=== PATIENT | female | born 1960 | race Caucasian/White ===

== ENCOUNTER 2022-07-24 17:06 | Emergency (ER) | payer OTHER ==
[2022-07-24] MEDS ORDERED: IBUPROFEN 400 MG TAB ONE (17:46)
--- NOTE | 2022-07-24 18:06 | RAD REPORT ---
EXAM DESCRIPTION: RAD - Ankle Left 3 View - 07/24/2022 5:57 pm CLINICAL HISTORY: Pain, twisting injury COMPARISON: None. FINDINGS: No fracture, dislocation or periosteal reaction. No joint effusion seen. No joint space na rrowing. Lateral and anterior soft tissue swelling present. IMPRESSION: Soft tissue swelling with no left ankle fracture.
--- NOTE | 2022-07-24 18:47 | ER ---
Nurse's Notes [facility] Name: Ginette Ortega Age: 61 yrs Sex: Female : 1960 Arrival Date: 07/24/2022 Time: 17:07 Bed 12 Private MD: Diagnosis: Sprain of ankle-left Presentation: 07/24 17:17 Chief complaint: Patient states: Twisted my left ankle this evening. C/O pain to left ld1 ankle. Coronavirus screen: At this time, the client does not indicate any symptoms associated with coronavirus-19. Ebola Screen: No symptoms or risks identified at this time. Initial Sepsis Screen: Does the patient meet any 2 criteria? No. Patient's initial sepsis screen is negative. Does the patient have a suspected source of infection? No. Patient's initial sepsis screen is negative. Risk Assessment: Do you want to hurt yourself or someone else? Patient reports no desire to harm self or others. Onset of symptoms was July 24, 2022. 17:17 Method Of Arrival: Wheelchair ld1 17:17 Acuity: RAQUEL 4 ld1 Triage Assessment: 17:18 General: Appears in no apparent distress. comfortable, Behavior is calm, cooperative, ld1 appropriate for age. Pain: Complains of pain in left foot Pain does not radiate. Pain currently is 8 out of 10 on a pain scale. Quality of pain is described as throbbing, Pain began suddenly. EENT: No signs and/or symptoms were reported regarding the EENT system. Neuro: Level of Consciousness is awake, alert, obeys commands, Oriented to person, place, time, situation, Appropriate for age. Cardiovascular: Capillary refill < 3 seconds Patient's skin is warm and dry. Respiratory: Airway is patent Respiratory effort is even, unlabored. GI: Abdomen is flat, non-distended. : No signs and/or symptoms were reported regarding the genitourinary system. Derm: No signs and/or symptoms reported regarding the dermatologic system. Musculoskeletal: No signs and/or symptoms reported regarding the musculoskeletal system. Historical: - Allergies: 17:18 PENICILLINS; ld1 - Home Meds: 17:18 None [Active]; ld1 - PSHx: 17:18 None; ld1 - Immunization history:: Adult Immunizations up to date, Client reports receiving the 2nd dose of the Covid vaccine. - Social history:: Smoking status: Patient denies any tobacco usage or history of. Patient/guardian denies using alcohol. Screenin:22 Abuse screen: Denies threats or abuse. Denies injuries from another. Nutritional mb8 screening: No deficits noted. Tuberculosis screening: No symptoms or risk factors identified. Fall Risk None identified. Assessment: 17:21 Musculoskeletal: Circulation, motion, and sensation intact. Capillary refill < 3 mb8 seconds, Swelling present in left ankle Reports pain in left ankle Patient tripped on concrete step and thinks she 'twisted' her ankle. Has been weight bearing on it since but reports pain when walking. 17:47 Reassessment: Patient and/or family updated on plan of care and expected duration. Pain mb8 level reassessed. Patient is alert, oriented x 3, equal unlabored respirations, skin warm/dry/pink. Vital Signs: 17:17 BP 116 / 77; Pulse 75; Resp 18; Temp 97.6(TE); Pulse Ox 99% on R/A; Weight 70.31 kg; ld1 Height 5 ft. 3 in. (160.02 cm); Pain 8/10; 17:17 Body Mass Index 27.46 (70.31 kg, 160.02 cm) ld1 ED Course: 17:07 Patient arrived in ED. am2 17:09 Delroy Maloney PA is PHCP. cp 17:09 Flavio Wall MD is Attending Physician. cp 17:18 Triage completed. ld1 17:18 Arm band placed on right wrist. ld1 17:21 Elian Gabriel, RN is Primary Nurse. mb8 17:22 Patient has correct armband on for positive identification. Bed in low position. Call mb8 light in reach. Side rails up X2. 17:23 Ice pack to injury. mb8 17:59 XRAY Ankle LEFT 3 view In Process Unspecified. EDMS 18:21 Crutch training done. ankle air cast. mb8 18:44 Wong Soriano MD is Referral Physician. cp 18:51 No provider procedures requiring assistance completed. Patient did not have IV access mb8 during this emergency room visit. Administered Medications: 17:47 Drug: Ibuprofen 800 mg Route: PO; mb8 Medication: 17:22 VIS not applicable for this client. mb8 Outcome: 18:46 Discharge ordered by . cp 18:51 Discharged to home with crutches, with family. mb8 18:51 Condition: stable 18:51 Discharge instructions given to patient, Instructed on discharge instructions, follow up and referral plans. medication usage, crutch walking, Demonstrated understanding of instructions, follow-up care, medications, crutch walking, splint care, Prescriptions given X 1. 18:51 Patient left the ED. mb8 Signatures: Dispatcher [employer] EDMS Delroy Maloney PA PA Sherie Saravia am2 Isa Jansen, RN RN ld1 Elian Gabriel RN RN mb8 Corrections: (The following items were deleted from the chart) 17:18 17:18 Allergies: No Known Allergies; ld1 ld1
--- NOTE | 2022-07-24 18:47 | EDPHYS ---
Physician Documentation [facility] Name: Ginette Ortega Age: 61 yrs Sex: Female : 1960 Arrival Date: 07/24/2022 Time: 17:07 Bed 12 Private MD: ED Physician Flavio Wall HPI: 07/24 17:50 This 61 yrs old Female presents to ER via Wheelchair with complaints of Ankle Injury. cp 17:50 The patient presents with decreased range of motion, an injury, pain, that is acute, cp swelling, tenderness. The complaints affect the left ankle. Onset: The symptoms/episode began/occurred just prior to arrival. Context: The problem was sustained outdoors, while walking lost her balance, ankle turned outward and caused her to fall. Immediate left ankle pain, The mechanism of injury involved eversion of the affected ankle. The patient is unable to bear weight. 17:50 Associated signs and symptoms: The patient has no apparent associated signs or symptoms.cp Historical: - Allergies: 17:18 PENICILLINS; ld1 - Home Meds: 17:18 None [Active]; ld1 - PSHx: 17:18 None; ld1 - Immunization history:: Adult Immunizations up to date, Client reports receiving the 2nd dose of the Covid vaccine. - Social history:: Smoking status: Patient denies any tobacco usage or history of. Patient/guardian denies using alcohol. ROS: 18:00 Constitutional: Negative for body aches, chills, fever, poor PO intake. cp 18:00 Cardiovascular: Negative for chest pain. 18:00 Respiratory: Negative for cough, shortness of breath, wheezing. 18:00 Abdomen/GI: Negative for abdominal pain, nausea, vomiting, and diarrhea. 18:00 MS/extremity: Positive for injury or acute deformity, decreased range of motion, pain, swelling, tenderness, of the left ankle. 18:00 Neuro: Negative for altered mental status, dizziness, headache, loss of consciousness, syncope, weakness. 18:00 All other systems are negative. Exam: 18:05 Constitutional: The patient appears in no acute distress, alert, awake, cp non-diaphoretic, non-toxic, well developed, well nourished, uncomfortable, overweight 18:05 Head/Face: Normocephalic, atraumatic. cp 18:05 Eyes: Periorbital structures: appear normal, Conjunctiva: normal, no exudate, no cp injection, Sclera: no appreciated abnormality, Lids and lashes: appear normal, bilaterally. 18:05 ENT: External ear(s): are unremarkable, Nose: is normal, Mouth: is normal, Posterior pharynx: Airway: no evidence of obstruction, patent. 18:05 Neck: ROM/movement: is normal, is supple, without pain, no range of motions limitations.cp 18:05 Chest/axilla: Inspection: normal. 18:05 Cardiovascular: Rate: normal, Rhythm: regular, Pulses: Pulses are 2+ in left dorsalis pedis artery. 18:05 Respiratory: the patient does not display signs of respiratory distress, Respirations: normal, no use of accessory muscles, no retractions, labored breathing, is not present, Breath sounds: are clear throughout, no decreased breath sounds, no stridor, no wheezing. 18:05 Abdomen/GI: Inspection: abdomen appears normal, Palpation: abdomen is soft and non-tender, in all quadrants. 18:05 Back: pain, is absent, ROM is normal. cp 18:05 Musculoskeletal/extremity: Extremities: grossly normal except: noted in the left ankle: cp pain, swelling and marked tenderness to palpation lateral malleolus, There is no evidence of gross deformity, ROM: limited passive range of motion, in the left ankle, Pulses: noted to be 2+ in the left dorsalis pedis artery, the left foot Sensation intact. no pain to palpation noted left fifth proximal metatarsal and/or left proximal fibula. 18:05 Neuro: Orientation: to person, place \T\ time. Mentation: is normal. Vital Signs: 17:17 BP 116 / 77; Pulse 75; Resp 18; Temp 97.6(TE); Pulse Ox 99% on R/A; Weight 70.31 kg; ld1 Height 5 ft. 3 in. (160.02 cm); Pain 8/10; 17:17 Body Mass Index 27.46 (70.31 kg, 160.02 cm) ld1 Procedures: 19:00 Splinting: Splint applied to left ankle using Orthoglass splint, posterior long leg and cp stirrup type. applied by nurse. Examined by me, post splint application: neurovascular intact, Patient tolerated well. MDM: 17:13 Patient medically screened. cp 18:46 Data reviewed: vital signs, nurses notes, radiologic studies, plain films, I have cp discussed the patient's presentation/case with the attending Emergency Department Physician; and as a result, I will discharge patient. 18:46 Differential diagnosis: fracture, sprain, dislocation, Achilles tendon rupture, foot cp fracture, proximal fibula fracture. Test interpretation: by ED physician or midlevel provider: plain radiologic studies. Counseling: I had a detailed discussion with the patient and/or guardian regarding: the historical points, exam findings, and any diagnostic results supporting the discharge/admit diagnosis, radiology results, the need for outpatient follow up, for definitive care, a orthopedic surgeon, to return to the emergency department if symptoms worsen or persist or if there are any questions or concerns that arise at home. Response to treatment: the patient's symptoms have markedly improved after treatment, and as a result, I will discharge patient. 07/24 17:43 Order name: XRAY Ankle LEFT 3 view; Complete Time: 18:30 cp Administered Medications: 17:47 Drug: Ibuprofen 800 mg Route: PO; mb8 Disposition: 07/25 17:07 Co-signature as Attending Physician, Flavio Wall MD. rn Disposition Summary: 07/24/22 18:46 Discharge Ordered Location: Home cp Problem: new cp Symptoms: have improved cp Condition: Stable cp Diagnosis - Sprain of ankle - left cp Followup: cp - With: Wong Soriano MD - When: 5 - 6 days - Reason: pain continues Discharge Instructions: - Ankle Sprain cp - Discharge Summary Sheet mb8 Forms: - Medication Reconciliation Form cp - Thank You Letter cp - Antibiotic Education cp - Prescription Opioid Use cp Prescriptions: - Ibuprofen 800 mg Oral Tablet - take 1 tablet by ORAL route every 8 hours As needed take with food; 30 tablet; cp Refills: 0, Product Selection Permitted Signatures: Dispatcher [employer] EDMS Flavio Wall MD MD rn Page, Corey, PA PA cp Isa Jansen RN RN ld1 Elian Gabriel RN RN mb8 Corrections: (The following items were deleted from the chart) 07/24 17:18 17:18 Allergies: No Known Allergies; ld1 ld1 07/25 17:30 07/24 16:00 MS/extremity: Positive for injury or acute deformity, decreased range of cp motion, pain, swelling, tenderness, of the left ankle, cp 07/25 16:00 Constitutional: Negative for body aches, chills, fever, poor PO intake, cp cp 07/25 16:00 Respiratory: Negative for cough, shortness of breath, wheezing, cp cp 07/25 16:00 Abdomen/GI: Negative for abdominal pain, nausea, vomiting, and diarrhea, cp cp 07/25 16: Cardiovascular: Negative for chest pain, cp cp 07/25 16: Neuro: Negative for altered mental status, dizziness, headache, loss of cp consciousness, syncope, weakness, cp 07/25 16:00 All other systems are negative, cp cp 07/25 17:07/24 18:05 Constitutional: The patient appears in no acute distress, alert, awake, cp non-diaphoretic, non-toxic, well developed, well nourished, uncomfortable, cp
[2022-07-24 20:18] VITALS: BP 116/77; TEMP 97.6; O2SAT 99
== END 2022-07-24 18:51 | disposition home or self-care (01) ==
LOC: ER 17:06
PROC: 2W3RX1Z Immobilization of Left Lower Leg using Splint (ICD-10-PCS; principal; 2022-07-24)
DX: S93.402A Sprain of unspecified ligament of left ankle, initial encounter (principal)
CPT/HCPCS: 99284